=== PATIENT | female | born 1970 | race Caucasian/White ===

== ENCOUNTER → 2016-11-26 | Day surgery (SDC) | payer SELFPAY ==
[2016-11-17 11:08] VITALS: Ht 163.8 cm; Wt 53.6 kg
[~2016-11-26] VITALS: Ht 163.8 cm; Wt 53.6 kg
[~2016-11-26] MED LIST: ATROPINE SULFATE 0.1 MG/ML 5ML SYR IV PRN; BENZOIN SPRAY 118 ML BTL TOP ONE; BUPIVACAINE/EPINEPHRINE 0.5% MPF 1:200,000 30 ML VIAL ONE; CEFAZOLIN 2000 MG/60 ML D5W IV SCH; DEXAMETHASONE SOD INJ 4 MG/ML VIAL ONE; FENTANYL CITRATE INJ 50 MCG/1 ML 2 ML VIAL IV PRN; FENTANYL CITRATE INJ 50 MCG/1 ML 2 ML VIAL ONE; GLYCOPYRROLATE INJ 0.2 MG/ML VIAL ONE; HYDR-5688 PO; HYDROCODONE/ACETAMOPHEN 5/325MG TAB PO PRN; KETOROLAC TROMETHAMINE 30 MG/ML VIAL IV. PRN; LACTATED RINGER'S 1000ML 1,000 ML IV SCH; LIDOCAINE HCL 2% 2 ML VIAL (20MG/ML) ONE; MIDAZOLAM HCL 1 MG/ML 2ML VIAL ONE; NEOSTIGMINE METHYLSULFATE 5 MG/5 ML SYR ONE; ONDANSETRON INJ 2 MG/ML 2 ML VIAL IV PRN; ONDANSETRON INJ 2 MG/ML 2 ML VIAL ONE; PROPOFOL IV EMULSION 10 MG/ML 20 ML VIAL IV ONE; ROCURONIUM BROMIDE 10 MG/ML 5 ML VIAL ONE; SODIUM CHLORIDE 0.9% 1000ML 1,000 ML IV SCH; SULF800T23 PO
--- NOTE | 2016-11-26 09:21 | History & Physical Bridge Note ---
H&P Re-Evaluation Bridge Note: I have examined the patient, reviewed the History & Physical and in the interval since the performance of the History & Physical I have noted the following changes of clinical significance: No changes noted
--- NOTE | 2016-11-26 10:27 | [facility] Operative Report ---
Operative Report Operative Date Nov 26, 2016. Pre-Operative Diagnosis Abscess of Anal or Rectal Region Post-Operative Diagnosis 1. moises rectal abcess with associated fistula Procedure(s) Performed rectal exam under anesthesia, I & D of moises-rectal abcess, placement of seton Surgeon Dr. Claudia Guillen Mentally Retarded Teacher Surgeon(s) Diamante Mckeon PA-C Estimated Blood Loss 15cc Findings moises-rectal abcess with associated fistula Specimens C&S Perirectal Abscess Anesthesia get Disposition Recovery Room / PACU I attest to the content of the Intraoperative Record and any orders documented therein. Any exceptions are noted below.
--- NOTE | 2016-11-26 10:38 | Discharge Instructions-SurgCtr ---
Discharge Instructions Date of Service Nov 26, 2016. Visit Reason for Visit: Abscess Of Anal Or Rectal Region Discharge Discharge Diagnosis / Problem: Abscess of Anal or Rectal Region Discharge Goals Goal(s): Decrease discomfort, Improve function Activity Recommendations Activity Limitations: as noted below Lifting Limitations: no more than 10 pounds Exercise/Sports Limitations: until after follow-up appointment May Resume Sexual Activity: after follow-up appointment Shower/Bathe: tomorrow Anesthesia . Post Anesthesia Instructions: If you have had General Anesthesia or IV Sedation: * Do not drive today. * Resume driving when surgeon permits. * Do not make important decisions or sign legal documents today. * Call surgeon for: 1. Temperature elevations greater than 101 degrees F. 2. Uncontrollable pain. 3. Excessive bleeding. 4. Persistent nausea and vomiting. 5. Medication intolerance (nausea, vomiting or rash). * For nausea and vomiting use only clear liquids such as: tea, soda, bouillon until nausea subsides, then gradually increase diet as tolerated. * If you have any concerns or questions, call your surgeon's office. If physician is unavailable and it is an emergency, call 911 or go to the nearest emergency room. . Instructions / Follow-Up Instructions / Follow-Up 1. Please use daily over the counter stool softener. 2. For pain control- please use prescription pain medication as prescribed. You made also use Ibuprofen for breakthrough pain. 3. 3-4 daily sitz baths are also recommended. 4. Please follow-up with Dr. Guillen in the office in 7-10 days. Please call the office at [phone] to make an appointment. Our office is located at [address] [place] [address], [place] [address]. 5. Please call the office at [phone] with any questions or concerns. Diet Recommendations Home Diet: no limitations, resume previous diet Procedures Procedures Performed: Rectal Exam Under Anesthesia, I&D PeriRectal Abscess, Placement Seton Pending Studies Studies pending at discharge: no Medical Emergencies . Who to Call and When: Medical Emergencies: If at any time you feel your situation is an emergency, please call 911 immediately. . Non-Emergent Contact Non-Emergency issues call your: Primary Care Provider, Surgeon Call Non-Emergent contact if: temperature is above 101.5, your pain is not controlled, wound has increased drainage, wound has increased redness . . "Provider Documentation" section prepared by Diamante Mckeon. . [place] Drug Monitoring Program Search Results: patient reviewed within database, no issues identified
[2016-11-26 11:40] VITALS: TEMP 36.6
--- NOTE | 2016-11-26 12:04 | OPERATIVE REPORT ---
DATE OF OPERATION: 11/26/2016 PREOPERATIVE DIAGNOSIS: Perirectal abscess, persistent. POSTOPERATIVE DIAGNOSIS: Same with associated fistula. PROCEDURES: Rectal exam under anesthesia, I&D of perirectal abscess and placement of a Seton. SURGEON: Dr. Jose Guillen. DEPUTY SHERIFF: Diamante Mckeon PA-C. ESTIMATED BLOOD LOSS: Approximately 15 mL. COMPLICATIONS: No immediate. ANESTHESIA: General. DESCRIPTION OF PROCEDURE: After informed consent was obtained, the patient was taken to the operating suite and placed in the supine position. After successful intubation, the patient was rolled over into a prone jackknife position. Benzoin and 3-inch silk tape were used to spread the buttocks apart. We sterilely prepped and draped the rectal area. I began by examining everything. Close to the rectum itself, there was a chronic indurated area with pus coming out of it, consistent with her known abscess. I did express some of the pus and sent some for culture and Gram stain. We then performed anoscopy with a rigid anoscope. The rectal vault itself appeared normal, although there was some induration at the 5 o'clock position near the abscess. I was able to use a crypt hook type device and found the fistulous tract leading from the rectum directly to the abscess itself. It was a short fistulous tract, but rather deep and I was concerned about performing a fistulotomy because of the sphincter muscles. I went ahead and opened the abscess cavity and drained a small amount of pus out of it. We cleaned out the debris and thoroughly irrigated it. I then connected the 2-0 nylon suture to the crypt hook and pulled it through the fistula. I then connected that to a vessel loop to use as a Seton and pulled back through the fistulous tract as well. I did tie the Seton down into place and then secured the limbs of the Seton with a 2-0 silk stitch. We did use Marcaine around the entire rectal area for postoperative analgesia. I thoroughly irrigated the rectum as well as the abscess cavity. No other abnormalities were identified. I will tighten the Seton periodically in the office until it falls down on its own. The patient was awakened, rolled in supine position, extubated, and transferred to recovery in stable condition. I attest to the content of the Intraoperative Record and any orders documented therein. Any exception s are noted below.
--- NOTE | 2016-11-26 12:05 | Anesthesia Progress Nt - [facility] ---
Anesthesia Post Op Note Date & Time Nov 26, 2016 at 12:05 Vital Signs Pain Intensity: 0.0 Vital Signs Past 12 Hours Date Time Temp Pulse Resp B/P (MAP) Pulse Ox O2 Delivery O2 Flow Rate FiO2 11/26/16 11:40 36.6 61 20 105/58 (74) 97 Room Air 11/26/16 11:33 36.8 64 18 99/56 100 Room Air 11/26/16 11:32 62 18 100 11/26/16 11:32 62 18 11/26/16 11:31 99/56 11/26/16 11:27 66 15 11/26/16 11:27 64 15 100 11/26/16 11:26 103/ 11/26/16 11:22 64 19 11/26/16 11:22 64 19 100 11/26/16 11:21 105/54 11/26/16 11:17 69 15 11/26/16 11:17 69 15 100 11/26/16 11:16 105/52 11/26/16 11:12 69 16 11/26/16 11:12 70 16 100 11/26/16 11:11 106/52 11/26/16 11:07 77 14 100 11/26/16 11:07 79 14 11/26/16 11:06 113/59 11/26/16 11:05 91 21 11/26/16 11:05 91 21 100 11/26/16 11:01 107/67 11/26/16 11:00 91 13 11/26/16 11:00 92 13 100 11/26/16 10:58 /33 11/26/16 10:55 102 17 100 11/26/16 10:55 101 17 11/26/16 10:51 112/62 11/26/16 10:50 96 22 11/26/16 10:50 97 22 100 11/26/16 10:47 37.0 95 16 112/58 95 Mask 5 11/26/16 10:46 112/58 11/26/16 10:45 101 33 100 11/26/16 10:45 101 33 11/26/16 07:59 36.7 72 16 112/73 (86) 100 Room Air Notes Mental Status: alert / awake / arousable, participated in evaluation Pt Amnestic to Procedure: Yes Nausea / Vomiting: adequately controlled Pain: adequately controlled Airway Patency, RR, SpO2: stable & adequate BP & HR: stable & adequate Hydration State: stable & adequate Anesthetic Complications: no major complications apparent
[2016-11-26 12:11] VITALS: BP 101/65; PULSE 51; O2SAT 98
== END | disposition home or self-care (01) ==
LOC: X.SURG 07:34
PROVIDERS: ATTEND Surgery
DX: K61.1 Rectal abscess (principal); K60.3 Anal fistula